=== PATIENT | female | born 1960 | race Caucasian/White ===

== ENCOUNTER 2022-03-22 13:43 | Outpatient (CLI) | payer OTHER, SELFPAY | END 2022-03-22 13:44 | disposition home or self-care (01) | LOC: CSHLAB 13:43 | PROVIDERS: ATTEND Obstetrics & Gynecology | DX: Z01.812 Encounter for preprocedural laboratory examination (principal); N95.0 Postmenopausal bleeding; N84.1 Polyp of cervix uteri | CPT/HCPCS: 85027; 86850; 86900; 86901 ==

== ENCOUNTER 2022-03-27 10:55 | Day surgery (SDC) | payer OTHER ==
[2022-03-22 10:44] VITALS: BMI 25.5
[2022-03-22 15:19] LABS: Hemoglobin 11.8 g/dL (12.0-15.5); Mean Corpuscular HGB CONC 32.4 g/dL (32.0-36.0); Mean Corpuscular Hemoglobin 26.1 pg (27.0-33.0); Mean Corpuscular Volume 80.5 fl (81.6-98.3); Mean Platelet Volume 11.2 fl (7.4-10.4); Platelet Count 234 10x3/uL (150-450); RBC Distribution Width 15.8 % (11.5-14.5); Red Blood Cell (RBC) Count 4.52 10x6/uL (3.90-5.03); White Blood Cell (WBC) Count 7.1 10x3/uL (3.5-10.5)
[2022-03-27] MEDS ORDERED: Gabapentin 300 MG CAP ONE (11:05)
[2022-03-27] MEDS ORDERED: Famotidine/PF 20 mg/2ml Vial ONE (11:05)
[2022-03-27] MEDS ORDERED: CEFAZOLIN 2 GM VIAL ONE ×2 (12:00→12:19)
[2022-03-27] MEDS ORDERED: Dexamethasone 20 MG/5 ML VIAL ONE (12:12)
[2022-03-27] MEDS ORDERED: Ondansetron PF 4 MG/2 ML Vial ONE (12:12)
[2022-03-27] MEDS ORDERED: Ketorolac Tromethamine 30 MG/ML VIAL ONE (12:12)
[2022-03-27] MEDS ORDERED: Midazolam HCl 2 mg/2 ml Vial ONE (12:12)
[2022-03-27] MEDS ORDERED: Fentanyl 100 MCG/2 ML VIAL ONE (12:12)
[2022-03-27] MEDS ORDERED: Lidocaine 1% PF 5 ML VIAL ONE (12:12)
[2022-03-27] MEDS ORDERED: PROPOFOL 20 ML ONE (12:12)
[2022-03-27] MEDS ORDERED: Tranexamic Acid 1,000 MG/10 ML VIAL ONE (13:07)
== END 2022-03-27 14:30 | disposition home or self-care (01) ==
LOC: CSHSDC 10:55
PROVIDERS: ATTEND Obstetrics & Gynecology
PROC: 0UB98ZZ Excision of Uterus, Via Natural or Artificial Opening Endoscopic (ICD-10-PCS; principal; 2022-03-27)
DX: N84.1 Polyp of cervix uteri (principal); N95.0 Postmenopausal bleeding; E11.9 Type 2 diabetes mellitus without complications; E78.00 Pure hypercholesterolemia, unspecified; I10 Essential (primary) hypertension; E03.9 Hypothyroidism, unspecified; K21.9 Gastro-esophageal reflux disease without esophagitis; Z79.899 Other long term (current) drug therapy
CPT/HCPCS: 36416; 85027; 86850; 86900; 86901; 88305; J0690; J1100; J1885; J2250; J2405; J2704; J3010; S0028